=== PATIENT | female | born 1965 | race Caucasian/White ===

== ENCOUNTER → 2017-05-19 | Outpatient (CLI) | payer OTHER ==
--- NOTE | 2017-05-20 09:34 | XR ---
EXAMINATION TYPE: XR shoulder complete LT DATE OF EXAM: 05/19/2017 CLINICAL HISTORY: Left shoulder pain. TECHNIQUE: Three views of the left shoulder are obtained. COMPARISON: None. FINDINGS: There is no acute fracture/dislocation evident in the left shoulder. The acromioclavicula r and glenohumeral joint spaces appear within normal limits. The visualized ribs are intact and unre markable. IMPRESSION: Unremarkable study.
--- NOTE | 2017-05-20 09:43 | XR ---
EXAMINATION TYPE: XR wrist complete LT DATE OF EXAM: 05/19/2017 CLINICAL HISTORY: Pain after fall injury. TECHNIQUE: Frontal, lateral, scaphoid, and oblique images of the left wrist are obtained. COMPARISON: None FINDINGS: There is no acute fracture/dislocation evident in the left wrist. The joint spaces in the left wrist appear within normal limits. The overlying soft tissue appears unremarkable. IMPRESSION: There is no acute fracture or dislocation in the left wrist.
== END | disposition home or self-care (01) ==
LOC: RADXRMAIN 16:46
PROVIDERS: ATTEND Internal Medicine
DX: M25.532 Pain in left wrist (principal)

== ENCOUNTER → 2018-08-25 | Outpatient (CLI) | payer OTHER ==
--- NOTE | 2018-08-25 14:52 | XR ---
EXAMINATION TYPE: XR lumbosacral spine min 4V DATE OF EXAM: 08/25/2018 CLINICAL HISTORY: pain COMPARISON: NONE TECHNIQUE: Frontal, lateral, and oblique images of the lumbar spine are obtained. FINDINGS: There are 5 lumbar type vertebral bodies identified. The lumbar spine shows satisfactory alignment without evidence of acute fracture or dislocation. Vertebral body heights are within normal limits. Disc spaces are well preserved. The overlying soft tissue appears unremarkable. Incidental cholelithiasis. IMPRESSION: No acute fracture or dislocation is seen in the lumbar spine.ICD 10 NO FRACTURE, INITIAL EVALUATION
== END | disposition home or self-care (01) ==
LOC: RADXRMAIN 14:14
PROVIDERS: ATTEND Internal Medicine
DX: M54.5 Low back pain (principal)
CPT/HCPCS: 72110

== ENCOUNTER 2020-11-01 | Emergency (ER) | payer OTHER | END 2020-11-01 18:26 | disposition home or self-care (01) ==

== ENCOUNTER → 2022-05-12 | Outpatient (CLI) | payer OTHER ==
--- NOTE | 2022-05-12 22:16 | MM ---
Reason for Exam: Screening (asymptomatic). Last mammogram was performed 6 year(s) and 11 month(s) ago. Indicated Problems: Pain of the left side (Global) for 2 Month(s) : lt lateral breast soreness x [address] alcala. Patient History: Menarche at age 15. First Full-Term at age 21. Postmenopausal. Benign Excisional Biopsy on the right side. Risk Values: [place] 5 year model risk: 1.0%. NCI Lifetime model risk: 7.2%. Prior Study Comparison: 09/24/2011 Bilateral Screening Mammogram, [facility]. 06/06/2015 Bilateral Screening Mammogram, [facility]. Tissue Density: The breast tissue is heterogeneously dense. This may lower the sensitivity of mammography. Findings: Analyzed By CAD. On the right CC view, area of asymmetric density just lateral to the retroareolar plane at a middle depth is more defined. This may represent superimposition shadow but further evaluation is recommended. In the left breast, asymmetric density superior MLO view is more defined and further evaluation is recommended. No suspicious microcalcification or other discrete abnormality is seen. We note that the patient complains of left lateral breast soreness. Overall Assessment: Incomplete: need additional imaging evaluation, BI-RAD 0 Management: Special View Mammogram of both breasts. 1. Right including spot 3-D CC, 3-D CC rolled medial, and 3-D ML views. 2. Left including spot 3-D MLO, spot 3-D CC, and 3-D lateral views. 3. Lateral left breast ultrasound for soreness. Additional ultrasound for any persisting abnormality on further workup imaging. [facility] will attempt to contact patient to return for supplemental views and ultrasound if indicated. Electronically signed and approved by: Gricelda Damon M.D. Radiologist
== END | disposition home or self-care (01) ==
LOC: RADMAMWWP 06:38
PROVIDERS: ATTEND Internal Medicine
DX: Z12.31 Encounter for screening mammogram for malignant neoplasm of breast (principal); Z78.0 Asymptomatic menopausal state
CPT/HCPCS: 77067